=== PATIENT | female | born 1950 | race Caucasian/White ===

== ENCOUNTER 2018-08-09 09:54 | Outpatient (REF) | payer MEDICARE, BC, SELFPAY ==
[2018-08-10 11:39] LABS: Campylobacter PCR SEE COMMENTS; Salmonella PCR SEE COMMENTS; Shiga Toxin PCR SEE COMMENTS; Shigella/Enteroinvasive Ecoli SEE COMMENTS
== END 2018-08-09 10:14 ==
LOC: NCHCN 09:54
PROVIDERS: PCP Naturopath; Visit Provider Nurse Practitioner Family
DX: R10.84 Generalized abdominal pain (principal)
CPT/HCPCS: 87505

== ENCOUNTER 2018-08-28 08:56 | Outpatient (REF) | payer MEDICARE, BC, SELFPAY ==
[2018-08-30 14:42] LABS: Helicobacter pylori Ag, Feces Negative (NEGAT)
== END 2018-08-28 09:16 ==
LOC: NCHCN 08:56
PROVIDERS: PCP Naturopath; Visit Provider Nurse Practitioner Family
DX: R10.84 Generalized abdominal pain (principal)
CPT/HCPCS: 87338

== ENCOUNTER 2018-12-25 18:07 | Observation (INO) | payer MEDICARE, BC, SELFPAY ==
[2018-12-25] VITALS (23 sets, daily range): BP systolic 110–186; BP diastolic 71–84; PULSE 44–63; RESP 12–23; TEMP 36.3–37.1; O2SAT 94–100
--- NOTE | 2018-12-25 18:18 | DI.CT_ITS ---
SYMPTOM/DIAGNOSIS: DIFFICULTY SPEAKING, ? CVA NONCONTRAST HEAD CT: A noncontrast cranial CT was performed. The ventricular system is normal in appearance. There is no evidence of an intracranial mass lesion. There is no evidence of a subdural or epidural hematoma. No focal areas of decreased attenuation are seen. CONCLUSION: Normal noncontrast Cranial CT.
--- NOTE | 2018-12-25 18:31 | W.ED.GENAD ---
Discharge Plan Disposition Patient Disposition: [facility] INPATIENT Condition: Stable Discharge Details Chief Complaint: CVA/TIA Clinical Impression: TIA (transient ischemic attack), Hypertensive urgency Primary Care Provider: Michelle Lucio ED Provider: Mery Herrera Home Meds and New Rx's Prescriptions: No Action liothyronine [Cytomel] 25 MCG tablet 25 mcg PO DAILY RF: 0 levothyroxine 25 MCG tablet 25 mcg PO DAILY RF: 0 nitrofurantoin monohyd/m-cryst [Macrobid] 100 MG capsule 100 mg PO BID Qty: 14 RF: 0 ciprofloxacin HCl 500 MG tablet 500 mg PO BID Qty: 10 RF: 0 doxycycline hyclate [Doryx] 100 MG tablet,delayed release (DR/EC) 100 mg PO BID Qty: 10 RF: 0 Medical Decision Making 68-year-old female with history of TIA and hypothyroidism who presents with what appears to be having difficulty finding words and with her memory that started 30 minutes ago. Patient noted to have mild expressive aphasia on arrival. NIH 1. No focal deficits on exam. No signs of airway compromise. Blood pressure moderately hypertensive. 186/78. Heart rate 54, states this is her baseline. Afebrile. Patient sent directly to CT and CT head negative. Shortly after transport from CT, symptoms completely resolved. This therefore appears consistent with a TIA. She did complain of some blurry vision in her left eye which she states is chronic but slightly worse than usual. OD 20/50, OS 20/50, OU 20/50, and slightly more blurry on left. Labs and chest x-ray reviewed and unremarkable. She did admit to some alcohol use prior to arrival and alcohol 34. She did not appear intoxicated. Will admit for TIA for MRI and carotid ultrasound. We will continue to monitor blood pressure, although her elevated blood pressure may have contributed to her possible TIA. BP now 164/76. 1855 --discussed with hospitalist -accepts patient for admission. 325 mg aspirin ordered. 1909 --Case discussed with [facility] neurology who are paged shortly after patient's arrival and they were notified of patient's resolution of symptoms. Agree that this likely consistent with a TIA and agree with plan for admission for MRI and carotid ultrasound. Medical Records Medical records reviewed: Yes I reviewed the patient's medical records. Imaging Data Radiologic Study: Radiologist's impression: CT Head Without Contrast EXAM DATE/TIME: 12/25/2018 6:20 PM CLINICAL HISTORY: 68 years old, female; Signs and symptoms; Altered mental status/memory loss TECHNIQUE: Imaging protocol: Axial computed tomography images of the head without contrast. Coronal and sagittal reformatted images were created and reviewed. COMPARISON: No relevant prior studies available. FINDINGS: Brain: Normal. No hemorrhage. Unremarkable white matter. No mass effect. Ventricles: Normal. No ventriculomegaly. Bones/joints: Unremarkable. No acute fracture. Sinuses: Visualized sinuses are unremarkable. No fluid levels. Mastoid air cells: Visualized mastoid air cells are well aerated. No mastoid effusion. Soft tissues: Unremarkable. IMPRESSION: No acute intracranial abnormality. Radiologic Study #2: Radiologist's impression: XR Chest, 1 View EXAM DATE/TIME: 12/25/2018 6:47 PM CLINICAL HISTORY: 68 years old, female; Signs and symptoms; Patient HX: Stroke like symptoms, R/O widened mediastinum TECHNIQUE: Imaging protocol: XR of the chest, 1 view. COMPARISON: No relevant prior studies available. FINDINGS: Lungs: Unremarkable. No consolidation. Pleural space: Unremarkable. No pleural effusion. No pneumothorax. Heart/Mediastinum: Unremarkable. No cardiomegaly. Bones/joints: Unremarkable. IMPRESSION: No acute findings. Normal mediastinum. Lab Data Lab results reviewed: Yes I reviewed the patient's lab results. Laboratory Tests Range/Units 12/25/18 12/25/18 12/25/18 18:24 18:24 18:24 WBC (4.4-10.8) k/cumm 4.73 RBC (4.00-5.20) m/cumm 4.10 Hgb (12.0-15.5) g/dL 13.6 Hct (36.0-46.0) % 39.5 MCV (80-95) fL 96.3 H MCH (27.0-33.0) pg 33.2 H MCHC (32.0-36.0) g/dL 34.4 RDW (11.7-14.6) % 12.2 Plt Count (130-400) x1000/uL 161 MPV (8.0-11.0) fL 12.7 H Immature Gran % 0.0 Neutrophils % 48.0 Lymphocytes % 40.8 Monocytes % 8.7 Eosinophils % 2.1 Basophils % 0.4 Absolute Neutrophils (1.2-6.7) k/cumm 2.27 Absolute Lymphocytes (1.2-3.4) k/cumm 1.93 Absolute Monocytes (0.11-0.7) k/cumm 0.41 Absolute Eosinophils (0.0-0.7) k/cumm 0.10 Absolute Basophils (0.0-0.2) k/cumm 0.02 Sodium (136-145) mmol/L 137 Potassium (3.5-5.1) mmol/L 3.4 L Chloride (98-107) mmol/L 99 Carbon Dioxide (21.0-32.0) mmol/L 29.8 Anion Gap (3-11) mmol/L 8.2 BUN (7-18) mg/dL 14 Creatinine (0.55-1.02) mg/dL 0.68 Estimated GFR/1.73 m2 (mL/min/1.73m2) >= 60.00 Glucose (70-100) mg/dL 99 Calcium (8.5-10.1) mg/dL 9.6 Magnesium (1.8-2.4) mg/dL 2.3 Total Bilirubin (0.2-1.0) mg/dL 0.4 AST (15-37) U/L 26 ALT (12-78) U/L 31 Alkaline Phosphatase (46-116) U/L 100 Troponin I (0.00-0.06) ng/mL < 0.02 Total Protein (6.4-8.2) g/dL 7.7 Albumin (3.4-5.0) g/dL 4.2 Ethyl Alcohol (<3) mg/dL 34.3 ECG Data Attestation: I personally reviewed and interpreted this ECG (s) as follows: Interpretation: Rate of 48, sinus, no acute ST elevation or depression. QTc 389. QRS 86. HPI General Mode of arrival: ambulatory. Date/Time Provider Initiated Documentation: 12/25/18 18:18. Limitations to Documentation: no limitations. Information obtained by: patient. HPI Narrative: Patient is a 68-year-old female with a history of TIA and hypothyroidism who presents to the ED with complaint of difficulty finding words that started 30 minutes prior to arrival. Patient states she is building a new house and they were painting a house when she sat down and felt like she could not get out the right words. She states she felt like her memory was off and she could not express the words she wanted to say. She admits to a brief headache when the symptoms started but states this is now resolved. She denies any fever, chest pain, shortness of breath, dizziness, blurry vision, unilateral weakness or numbness. Related Data Home Medications Medication Instructions Recorded Confirmed levothyroxine 25 mcg PO DAILY 05/10/15 05/10/15 liothyronine [Cytomel] 25 mcg PO DAILY 05/10/15 05/10/15 nitrofurantoin monohyd/m-cryst 100 mg PO BID #14 cap 05/10/15 [Macrobid] ciprofloxacin HCl 500 mg PO BID #10 tab 03/02/17 doxycycline hyclate [Doryx] 100 mg PO BID #10 tabcr 03/02/17 Previous Rx's Medication Instructions Recorded nitrofurantoin monohyd/m-cryst 100 mg PO BID #14 cap 05/10/15 [Macrobid] ciprofloxacin HCl 500 mg PO BID #10 tab 03/02/17 doxycycline hyclate [Doryx] 100 mg PO BID #10 tabcr 03/02/17 Allergies Allergy/AdvReac Type Severity Reaction Status Date / Time Penicillins Allergy Intermediate Skin Rash Unverified 05/10/15 11:26 Sulfa (Sulfonamide Allergy Intermediate Skin Rash Unverified 05/10/15 11:26 Antibiotics) General Stated Complaint: CVA/TIA ANAHY: 2 Review of Systems Review of Systems All systems reviewed & are unremarkable except as noted in HPI and below Constitutional Reports as per HPI, Denies chills and Denies fever(s) Eyes Denies blurry vision ENT Denies dizziness, Denies sore throat and Denies throat swelling Cardiovascular Denies chest pain and Denies dyspnea Respiratory Denies cough and Denies dyspnea Gastrointestinal Denies abdominal pain, Denies diarrhea and Denies vomiting Genitourinary Denies hematuria and Denies dysuria Musculoskeletal Denies back pain and Denies numbness Integumentary/Breasts Denies lesions and Denies rash Neurologic Denies dizziness, Denies focal weakness and Denies numbness Allergic/Immunologic Denies throat swelling [facility] Medical History TIA (transient ischemic attack) (Acute) Hypothyroidism (Chronic) Surgical History No significant past surgical history (Acute) Social History Smoking/Tobacco Use Status: Former Tobacco Use Alcohol Intake: current Alcohol Intake frequency: holidays/special occasions only Drug use: Never Do you feel safe in your relationship?: Yes Exam Const General: cooperative, healthy appearing and no acute distress HENMT Head: normal to inspection Face and sinus: normal facial exam Eyes General: appearance normal, both eyes and all related structures Pupils: PERRL EOM: EOM intact bilaterally Neck Neck: normal visual inspection and No submandibular swelling Lymphatic: no lymphadenopathy noted Chest Chest: normal inspection of the chest and no tenderness Resp Effort & Inspection: normal respiratory effort and able to speak in complete sentences Auscultation: clear to auscultation bilaterally Cardio Rate: regular rate Rhythm: regular rhythm GI Inspection: normal to inspection Palpation: soft, not firm, not rigid and nontender Auscultation: normal bowel sounds Skin General skin exam: no rashes or lesions noted Neuro General: alert, awake, oriented x3, gait normal, moves all extremities, no meningeal signs and no focal motor deficits Cranial Nerves: CN's II-XI intact bilaterally and PERRL Cognition: normal cognition Speech: abnormal speech other (difficulty finding words c/w expressive aphasia) Motor: muscle tone normal throughout, strength 5/5 throughout and no pronator drift Sensory Exam: no sensory deficits noted Extrem General: normal to inspection, full ROM, normal capillary refill, no calf tenderness bilaterally and no edema Psych Appearance: grossly normal Mental Status: mental status grossly normal Speech and Movement: speech and movement normal Affect: normal affect Course Vital Signs Temperature 98.8 F 12/25/18 18:13 Pulse 54 L 12/25/18 18:13 Respiratory Rate 18 12/25/18 18:13 Blood Pressure 186/78 H 12/25/18 18:13 Pulse Oximetry 94 L 12/25/18 18:13 Temperature 98.8 F 12/25/18 18:13 Temperature Source Temporal Artery Scan 12/25/18 18:13 Pulse 54 L 12/25/18 18:13 Respiratory Rate 18 12/25/18 18:13 Blood Pressure 186/78 H 12/25/18 18:13 Pulse Oximetry 94 L 12/25/18 18:13 Oxygen Delivery Method Room Air 12/25/18 18:13 Oxygen Flow Rate 0 12/25/18 18:13
[2018-12-25 18:32] LABS: Absolute Basophil Count 0.02 k/cumm (0.0-0.2); Absolute Lymphocyte Count 1.93 k/cumm (1.2-3.4); Absolute Monocyte Count 0.41 k/cumm (0.11-0.7); Absolute Neutrophil Count 2.27 k/cumm (1.2-6.7); Basophils % 0.4; Eosinophils % 2.1; HCT 39.5 % (36.0-46.0); HGB 13.6 g/dL (12.0-15.5); Lymphocytes % 40.8; Mean Corp. HGB Concentration 34.4 g/dL (32.0-36.0); Mean Corpuscular Hemoglobin 33.2 pg (27.0-33.0); Mean Corpuscular Volume 96.3 fL (80-95); Mean Platelet Volume 12.7 fL (8.0-11.0); Monocytes % 8.7; Platelet Count 161 x1000/uL (130-400); RBC Distribution Width 12.2 % (11.7-14.6); White Blood Cell Count 4.73 k/cumm (4.4-10.8)
--- NOTE | 2018-12-25 18:42 | NUR.NOTE ---
Nursing Note: Pt walked into room 4 with steady gait. When asked what brings her here today she was unable to articulate the reason and her states that she is unable to finish her sentences. Hx of TIA without deficit. Moved her to rm 1. Attached exploration engineer, continuous pulse ox, and BP cuff q 30 min reads and got MD to bedside. Pt has symmetrical face not weakness just unable to find her words. IV started labs drawn and brought to CT via stretcher on monitor with a nurse. Pt tolerated CT well but refused chest xray until she talks to MD. Pt brought back to rm 1 MD informed. Pt is speaking in full sentences and seems to be doing better.
[2018-12-25 18:47] LABS: ETHANOL BLOOD 34.3 mg/dL (<3)
--- NOTE | 2018-12-25 18:47 | DI.VRAD_ITS ---
EXAM: CT Head Without Contrast EXAM DATE/TIME: 12/25/2018 6:20 PM CLINICAL HISTORY: 68 years old, female; Signs and symptoms; Altered mental status/memory loss TECHNIQUE: Imaging protocol: Axial computed tomography images of the head without contrast. Coronal and sagittal reformatted images were created and reviewed. COMPARISON: No relevant prior studies available. FINDINGS: Brain: Normal. No hemorrhage. Unremarkable white matter. No mass effect. Ventricles: Normal. No ventriculomegaly. Bones/joints: Unremarkable. No acute fracture. Sinuses: Visualized sinuses are unremarkable. No fluid levels. Mastoid air cells: Visualized mastoid air cells are well aerated. No mastoid effusion. Soft tissues: Unremarkable. IMPRESSION: No acute intracranial abnormality. Dictated and Authenticated by: Vanna Nicole MD. Ordering:JV Ordonez MD
[2018-12-25 18:55] LABS: ALT 31 U/L (12-78); AST 26 U/L (15-37); Albumin 4.2 g/dL (3.4-5.0); Alkaline Phosphatase 100 U/L (46-116); Anion Gap 8.2 mmol/L (3-11); BUN 14 mg/dL (7-18); Bilirubin, Total 0.4 mg/dL (0.2-1.0); CO2 29.8 mmol/L (21.0-32.0); CREATININE 0.68 mg/dL (0.55-1.02); Calcium 9.6 mg/dL (8.5-10.1); Chloride 99 mmol/L (98-107); Glucose 99 mg/dL (70-100); Magnesium 2.3 mg/dL (1.8-2.4); Potassium 3.4 mmol/L (3.5-5.1); Sodium 137 mmol/L (136-145); Total Protein 7.7 g/dL (6.4-8.2); Troponin I < 0.02 ng/mL (0.00-0.06)
--- NOTE | 2018-12-25 18:55 | DI.RAD_ITS ---
SYMPTOM/DIAGNOSIS: STROKE LIKE SYMPTOMS, ? WIDENED MEDIASTINUM PORTABLE AP CHEST: No priors. The heart is normal in size. The lungs are clear. The mediastinal structures and pleura appear intact. CONCLUSION: Normal chest.
[2018-12-25 19:06] LABS: PTT Activated 23.2 sec (21.0-31.4); Prothrombin Time 9.5 sec (9.3-11.0)
[2018-12-25] MEDS: Aspirin 325 MG TAB PO (19:13)
--- NOTE | 2018-12-25 19:20 | DI.VRAD_ITS ---
EXAM: XR Chest, 1 View EXAM DATE/TIME: 12/25/2018 6:47 PM CLINICAL HISTORY: 68 years old, female; Signs and symptoms; Patient HX: Stroke like symptoms, R/O widened mediastinum TECHNIQUE: Imaging protocol: XR of the chest, 1 view. COMPARISON: No relevant prior studies available. FINDINGS: Lungs: Unremarkable. No consolidation. Pleural space: Unremarkable. No pleural effusion. No pneumothorax. Heart/Mediastinum: Unremarkable. No cardiomegaly. Bones/joints: Unremarkable. IMPRESSION: No acute findings. Normal mediastinum. Dictated and Authenticated by: Vanna Nicole MD. Ordering:JV Ordonez MD
--- NOTE | 2018-12-25 19:43 | HPE_ITS ---
Date of service: 12/25/18 Time of Service: 19:35 History of Present Illness Chief Complaint: aphasia Narrative: 68 right handed female reports sudden onset of difficulty formulating words (knew what she wanted to say) along with vague sense of blurry vision and then left periorbital LAURA. CT head negative and language disturbance resolved here in ER, total duration some 30 minutes. LAURA persists to a degree, but better.Does report history of TIA, but apparently what she is referencing is some incidental finding on imaging study at [facility] [place] about a year ago. No prior similar symptoms. In ER has received dose of ASA; no AF on monitor. Review of Systems Review of Systems All systems reviewed & are unremarkable except as noted in HPI and below PFSH Medical History TIA (transient ischemic attack) (Acute) Hypothyroidism (Chronic) Surgical History No significant past surgical history (Acute) Social History Smoking/Tobacco Use Status: Former Tobacco Use Alcohol Intake: current Alcohol Intake frequency: holidays/special occasions only Drug use: Never Do you feel safe in your relationship?: Yes Meds Home Medications Medication Instructions Recorded Confirmed Type levothyroxine 25 mcg PO DAILY 05/10/15 05/10/15 History liothyronine [Cytomel] 25 mcg PO DAILY 05/10/15 05/10/15 History nitrofurantoin monohyd/m-cryst 100 mg PO BID #14 cap 05/10/15 Rx [Macrobid] ciprofloxacin HCl 500 mg PO BID #10 tab 03/02/17 Rx doxycycline hyclate [Doryx] 100 mg PO BID #10 tabcr 03/02/17 Rx Allergies Allergy/AdvReac Type Severity Reaction Status Date / Time Penicillins Allergy Intermediate Skin Rash Unverified 05/10/15 11:26 Sulfa (Sulfonamide Allergy Intermediate Skin Rash Unverified 05/10/15 11:26 Antibiotics) Exam Narrative Exam Narrative: 160/84, 50, 12, 37.1. HEENT atraumatic; neck supple, no bruits; lungs clear; heart marina/regular; abdomen soft, NT; extr: no edema; neuro o x3, languagee fluent, perrl, eomi, visual qureshi full, motor 5/5, toes downgoing Results Labs : 12/25/18 18:24 12/25/18 18:24 Laboratory Results - last 24 hr 12/25/18 12/25/18 12/25/18 18:24 18:24 18:24 WBC 4.73 RBC 4.10 Hgb 13.6 Hct 39.5 MCV 96.3 H MCH 33.2 H MCHC 34.4 RDW 12.2 Plt Count 161 MPV 12.7 H Immature Gran % 0.0 Neutrophils % 48.0 Lymphocytes % 40.8 Monocytes % 8.7 Eosinophils % 2.1 Basophils % 0.4 Absolute Neutrophils 2.27 Absolute Lymphocytes 1.93 Absolute Monocytes 0.41 Absolute Eosinophils 0.10 Absolute Basophils 0.02 PT INR APTT Sodium 137 Potassium 3.4 L Chloride 99 Carbon Dioxide 29.8 Anion Gap 8.2 BUN 14 Creatinine 0.68 Estimated GFR/1.73 m2 >= 60.00 Glucose 99 Calcium 9.6 Magnesium 2.3 Total Bilirubin 0.4 AST 26 ALT 31 Alkaline Phosphatase 100 Troponin I < 0.02 Total Protein 7.7 Albumin 4.2 Ethyl Alcohol 34.3 12/25/18 18:24 WBC RBC Hgb Hct MCV MCH MCHC RDW Plt Count MPV Immature Gran % Neutrophils % Lymphocytes % Monocytes % Eosinophils % Basophils % Absolute Neutrophils Absolute Lymphocytes Absolute Monocytes Absolute Eosinophils Absolute Basophils PT 9.5 INR 1.0 APTT 23.2 Sodium Potassium Chloride Carbon Dioxide Anion Gap BUN Creatinine Estimated GFR/1.73 m2 Glucose Calcium Magnesium Total Bilirubin AST ALT Alkaline Phosphatase Troponin I Total Protein Albumin Ethyl Alcohol Last Vital Signs Temp 37.1 C 12/25/18 18:13 Pulse 49 L 12/25/18 19:03 Resp 12 12/25/18 19:20 BP 164/76 H 12/25/18 19:03 Pulse Ox 100 12/25/18 19:20
[2018-12-26 04:05] VITALS: BP 117/69; PULSE 70; RESP 17; TEMP 37.2; O2SAT 96
[2018-12-26 07:12] VITALS: PULSE 58
[2018-12-26 07:15] VITALS: BP 110/67; PULSE 59; RESP 16; TEMP 36.7; O2SAT 98
[2018-12-26 07:16] LABS: TSH 0.41 uIU/mL (0.358-3.74)
--- NOTE | 2018-12-26 08:15 | DI.US_ITS ---
SYMPTOM/DIAGNOSIS: DIFFICULTY SPEAKING, ? CVA, TIA, APHASIA,FORMER SMOKER CAROTID ULTRASOUND: Routine examination was performed. There is minimal intimal thickening seen bilaterally in the mid internal carotid arteries and bulb. No hemodynamically significant velocity elevations are seen. The vertebral arteries are antegrade. IMPRESSION: No evidence of hemodynamically significant cervical carotid artery stenosis.
[2018-12-26 09:10] LABS: Anion Gap 6.1 mmol/L (3-11); BUN 11 mg/dL (7-18); CO2 31.9 mmol/L (21.0-32.0); CREATININE 0.78 mg/dL (0.55-1.02); Chloride 103 mmol/L (98-107); Glucose 120 mg/dL (70-100); Potassium 3.8 mmol/L (3.5-5.1); Sodium 141 mmol/L (136-145)
[2018-12-26 09:47] LABS: Calculated LDL 93; Cholesterol 199 mg/dL (50-200); HDL Cholesterol 77 mg/dL (40-60); Triglyceride 149 mg/dL (30-150)
--- NOTE | 2018-12-26 09:57 | PDOC.CMIN ---
- If Service Date Differs Date of service: 12/26/18 Time of Service: 09:57 Care Management Initial Assess REASON FOR HOSPITALIZATION:: TIA PAST MEDICAL HISTORY/PAST SURGICAL HISTORY:: Hypothyroidisim ADVANCE DIRECTIVES:: On file agent is Jhon Josejin CODE STATUS:: Full Code INSURANCE COVERAGE / FINANCIAL ISSUES:: BCBS, Medicare PRIMARY CARE PHYSICIAN:: Michelle Lucio POTENTIAL DISCHARGE NEEDS:: Follow up with primary care, and neurology PATIENT/FAMILY EDUCATION NEEDS:: Discharge education, limitations and follow up plan of care including ask me three and self management ANTICIPATED BARRIERS TO DISCHARGE:: None TRANSPORTATION:: Via private car with family at time of discharge. PLAN:: Perri will have a carotid ultra sound, telemetry and anticipate discharge home today if her symptoms have improved and she is medically ready. Anticiapte no additional services at time of discharge. Anticipate she will be discharged with cardiac event monitor for follow up as outpatient.
[2018-12-26] MEDS: Aspirin 325 MG TAB PO (10:44)
[2018-12-26] MEDS: Potassium Chloride 20 MEQ TABCR 40 MEQ PO (10:49)
--- NOTE | 2018-12-26 11:08 | W.PM.DS.N ---
Date of service: 12/26/18 Time of Service: 11:08 DS: Diagnosis Discharge Diagnosis (1) TIA (transient ischemic attack): Status: Acute Discharge Plan Disposition Patient Disposition: HOME Condition: Stable Discharge Details Reason For Visit: TIA Admit Date/Time: 12/25/18 19:48 Admit Provider: Huang Moreno Attending Provider: Huang Moreno Primary Care Provider: Michelle Lucio Hospital Course Hospital Course: Perri Moran is a very pleasant 68 year old female with a past medical history of hypothyroidism who is followed by Michelle Lucio, Naturopathic Doctor in [place], as well as Vilma Downs, JV. She presented to the ED on 12/25/18 with reports of word finding difficulty and blurry vision and was noted to have mild expressive aphasia and hypertension on arrival. She was referred for CT head which was negative. Her symptoms resolved after a total of 30 minutes. She was given aspirin 325mg in the ED and admitted to the med/surg floor for further observation and management. She was monitored on telemetry overnight and remained in sinus bradycardia. She had a carotid artery ultrasound which did not find evidence of hemodynamically significant cervical carotid artery stenosis. Her chest x-ray was normal. Her [facility] [place] were reviewed and of note, she had an MRI in July 2017 which showed small vessel disease. She also had an echocardiogram in October 2017 which was normal. An MRI was scheduled for the day of discharge, however, she preferred not to have the test while in the hospital. She decided to hold off on any further testing until she discussed it with her PCP, Michelle Lucio. Her lipids showed a total cholesterol of 199, triglycerides of 149, HDL 77, LDL 93. Consideration was made to start Statin therapy for secondary stroke prevention, however, the patient preferred to discuss any medication changes with her PCP prior to starting. She did agree to take a full strength aspirin daily and also agreed to a holter monitor at the time of discharge. Mrs. Moran did not have recurrence of symptoms while in the hospital. We discussed that given that her previous MRI brain showed small vessel disease, it was possible that her current symptoms could represent a TIA, which would place her at higher risk of having a CVA. She also admits that she has been under significant stress, this could also possibly represent a complex migraine. She was set up with a follow up appointment with Neurology. She will follow up with her PCP as scheduled. She will discuss having an MRI, repeat echocardiogram and starting a statin with her PCP. She is discharged home on daily Aspirin and with a holter monitor in place. Home Meds and New Rx's Prescriptions: New aspirin 325 mg Tablet 325 mg PO DAILY Qty: 30 RF: 0 Continued liothyronine [Cytomel] 25 MCG tablet 25 mcg PO DAILY RF: 0 levothyroxine 25 MCG tablet 75 mcg PO DAILY RF: 0 Discharge Instructions Additional Instructions: Discuss having a repeat MRI with your PCP. Continue taking Aspirin daily. Consider taking a Statin for stroke prevention. Discuss follow up with neurology with your PCP (an appointment has been made). Take care! Stand Alone Forms: Nursing Discharge Form Referrals: Michelle Lucio [Primary Care Provider] - 01/01/19 4:00 pm Sadaf Gates MD [ [facility] STAFF PHYSICIAN] - 02/11/19 8:45 am Activity:: Activity as Tolerated Equipment/Supplies:: No Equipment Needed Diet:: Heart healthy diet. Discharge Orders Discharge Orders: Discharge Order (Routine); Ordered 12/26/18 Ordered By: Jacqui Brown Discharge Data Discharge Date/Time-TO BE ENTERED AT DEPARTURE: 12/26/18 12:31 Exam Narrative Exam Narrative: General: alert and oriented, pleasant and cooperative, answers questions appropriately, no word finding difficulty. Speech is clear and articulate. HEENT: normocephalic, atraumatic, pupils symmetrical and round, EOMI, mucous membranes moist. Neck: supple, no JVD. Respiratory: respirations even and unlabored, lung sounds clear bilaterally. Cardiovascular: heart sounds regular, bradycardic in the 50s. No murmur. GI: abdomen soft, nontender, normoactive bowel sounds. Extremities: no clubbing, cyanosis or edema. DS: Data Vitals/I&O Vitals and I&O: Vital Signs Temperature 36.7 C 12/26/18 07:15 Temperature Source Tympanic 12/26/18 07:15 Pulse 59 L 12/26/18 07:15 Pulse Rhythm Regular 12/26/18 09:15 Pulse 46 L 12/25/18 19:50 Respiratory Rate 16 12/26/18 07:15 Respiratory Effort 12/26/18 09:15 Respiratory Depth Normal 12/26/18 09:15 Respiratory Pattern Normal 12/26/18 09:15 Blood Pressure 110/67 12/26/18 07:15 Blood Pressure Mean 80 12/25/18 19:32 Pulse Oximetry 98 12/26/18 07:15 Oxygen Delivery Method Room Air 12/26/18 07:15 Oxygen Flow Rate 0 12/26/18 07:15 Pain Level 0 12/26/18 04:05 Intake & Output 12/25/18 12/25/18 12/26/18 11:59 23:59 11:59 Intake Total 1000 / 1000 660 / 660 Output Total 1400 / 1400 1150 / 1150 Balance -400 / -400 -490 / -490 Weight 70.8 kg Intake: Oral 1000 / 1000 660 / 660 Output: Urine 1400 / 1400 1150 / 1150 Other: Urine Color Yellow Pale Yellow Urine Appearance Clear Clear Urine Odor Normal None Voiding Methods Toilet Toilet Completed studies during hospitalization [Text1]: 12/25/[address]: A noncontrast cranial CT was performed. The ventricular system is normal in appearance. There is no evidence of an intracranial mass lesion. There is no evidence of a subdural or epidural hematoma. No focal areas of decreased attenuation are seen. CONCLUSION: Normal noncontrast Cranial CT. PORTABLE AP CHEST: No priors. The heart is normal in size. The lungs are clear. The mediastinal structures and pleura appear intact. CONCLUSION: Normal chest. 12/26/18: CAROTID ULTRASOUND: Routine examination was performed. There is minimal intimal thickening seen bilaterally in the mid internal carotid arteries and bulb. No hemodynamically significant velocity elevations are seen. The vertebral arteries are antegrade. IMPRESSION: No evidence of hemodynamically significant cervical carotid artery stenosis. Labs on day of discharge: Labs from last 24 hours 12/26/18 12/25/18 12/25/18 08:38 18:24 18:24 WBC RBC Hgb Hct MCV MCH MCHC RDW Plt Count MPV Immature Gran % Neutrophils % Lymphocytes % Monocytes % Eosinophils % Basophils % Absolute Neutrophils Absolute Lymphocytes Absolute Monocytes Absolute Eosinophils Absolute Basophils PT 9.5 INR 1.0 APTT 23.2 Sodium 141 Potassium 3.8 Chloride 103 Carbon Dioxide 31.9 Anion Gap 6.1 BUN 11 Creatinine 0.78 Estimated GFR/1.73 m2 >= 60.00 Glucose 120 H Calcium 9.0 Magnesium Total Bilirubin AST ALT Alkaline Phosphatase Troponin I Total Protein Albumin Triglycerides 149 Total Cholesterol 199 LDL Cholesterol, Calc 93 HDL Cholesterol 77 H TSH Ethyl Alcohol 34.3 12/25/18 12/25/18 18:24 18:24 WBC 4.73 RBC 4.10 Hgb 13.6 Hct 39.5 MCV 96.3 H MCH 33.2 H MCHC 34.4 RDW 12.2 Plt Count 161 MPV 12.7 H Immature Gran % 0.0 Neutrophils % 48.0 Lymphocytes % 40.8 Monocytes % 8.7 Eosinophils % 2.1 Basophils % 0.4 Absolute Neutrophils 2.27 Absolute Lymphocytes 1.93 Absolute Monocytes 0.41 Absolute Eosinophils 0.10 Absolute Basophils 0.02 PT INR APTT Sodium 137 Potassium 3.4 L Chloride 99 Carbon Dioxide 29.8 Anion Gap 8.2 BUN 14 Creatinine 0.68 Estimated GFR/1.73 m2 >= 60.00 Glucose 99 Calcium 9.6 Magnesium 2.3 Total Bilirubin 0.4 AST 26 ALT 31 Alkaline Phosphatase 100 Troponin I < 0.02 Total Protein 7.7 Albumin 4.2 Triglycerides Total Cholesterol LDL Cholesterol, Calc HDL Cholesterol TSH 0.41 Ethyl Alcohol PFSH Medical History TIA (transient ischemic attack) (Acute) Hypothyroidism (Chronic) Surgical History No significant past surgical history (Acute) Social History Smoking/Tobacco Use Status: Former Tobacco Use Alcohol Intake: current Alcohol Intake frequency: holidays/special occasions only Drug use: Never Do you feel safe in your relationship?: Yes
== END 2018-12-26 12:31 | disposition home or self-care (01) ==
LOC: ER 20:06 → MS 20:16
PROVIDERS: Nurse Practitioner; Admitting Provider General Practice; Emergency Provider Physician Assistant; PCP Naturopath; Visit Provider Internal Medicine
DX: G45.9 Transient cerebral ischemic attack, unspecified (principal); G43.809 Other migraine, not intractable, without status migrainosus; F80.1 Expressive language disorder; H53.8 Other visual disturbances; R00.1 Bradycardia, unspecified; E03.9 Hypothyroidism, unspecified; R03.0 Elevated blood-pressure reading, without diagnosis of hypertension; Z73.3 Stress, not elsewhere classified
CPT/HCPCS: 36415; 80048; 80053; 80061; 83721; 93005; 99222; 99239; 99285; 70450; 71045; 80320; 83735; 84443; 84484; 85025; 85610; 85730; 93010; 93225; 93880; 99217; 99219; G0378

== ENCOUNTER 2018-12-29 12:26 | Outpatient (CLI) | payer MEDICARE, BC, SELFPAY ==
--- NOTE | 2018-12-31 11:53 | HOLTER_ITS ---
CARDIAC HOLTER MONITOR DATE OF DICTATION December 31, 2018 48-Hour Study INTERPRETATION Baseline rhythm sinus. Rare single PAC. No SVT or atrial fibrillation. Rare single PVC. No VT. Nocturnal heart rates as low as 35-40 beats per minute, sinus bradycardia. SYMPTOMS No symptoms. Average heart rate 52 beats per minute. Quintin Dee M.D. T - 12/31/18
== END 2018-12-29 12:46 ==
PROVIDERS: PCP Naturopath; Visit Provider General Practice
DX: R00.1 Bradycardia, unspecified (principal)
CPT/HCPCS: 93226

== ENCOUNTER 2018-12-31 09:48 | Outpatient (CLI) | payer MEDICARE, BC, SELFPAY | END 2018-12-31 10:08 | PROVIDERS: PCP Naturopath; Referring Provider Nurse Practitioner; Visit Provider Internal Medicine Interventional Cardiology | DX: R00.1 Bradycardia, unspecified (principal) | CPT/HCPCS: 93227 ==

== ENCOUNTER 2019-02-28 11:56 | Emergency (ER) | payer MEDICARE, BC, SELFPAY ==
[2019-02-28 12:04] VITALS: BP 150/60; PULSE 44; RESP 15; TEMP 36.3; O2SAT 100
--- NOTE | 2019-02-28 12:37 | W.ED.GENAD ---
Discharge Plan Disposition Patient Disposition: HOME Condition: Stable Discharge Details Chief Complaint: Laceration Clinical Impression: Forehead laceration, Contusion of right knee Primary Care Provider: Michelle Lucio ED Provider: Quintin Triana Home Meds and New Rx's Prescriptions: No Action liothyronine [Cytomel] 25 MCG tablet 25 mcg PO DAILY RF: 0 levothyroxine 25 MCG tablet 75 mcg PO DAILY RF: 0 aspirin 325 mg Tablet 325 mg PO DAILY Qty: 30 RF: 0 Discharge Instructions Instructions: Contusion in Adults (ED), Facial Laceration (ED) Medical Decision Making 68 yo female comes in with wound to the right forehead. She was in a new house yesterday wearing a long dress and it got caught on a box causing her to fall. Did not have loc and has no severe headaches or vomit. HAs a small very superficial 1cm laceration to the right forehead. Given length of time since injury and superficial do not feel sutures indicated. Given a day since the fall and no headaches, ams or neuro symptoms do not feel imaging indicated and has no neck pain. Also has some anterior right knee pain has full rom and bearing weight without limp. I offered an xray but she declined of the knee which I feel is reasonable. Will have nursing place steri strips and return precautions given Differential Diagnosis laceration, abrasion, contusion HPI General Mode of arrival: ambulatory. Date/Time Provider Initiated Documentation: 02/28/19 12:22. Limitations to Documentation: no limitations. Information obtained by: patient. History of Present Illness 68 year old F presents to the emergency department with the chief complaint of head laceration, described as mild, Quality is described as aching, No relieving factors improve symptom(s), No exacerbating factors reported . Related Data Home Medications Medication Instructions Recorded Confirmed levothyroxine 75 mcg PO DAILY 05/10/15 02/28/19 liothyronine [Cytomel] 25 mcg PO DAILY 05/10/15 02/28/19 aspirin 325 mg PO DAILY #30 tab 12/26/18 02/28/19 Previous Rx's Medication Instructions Recorded aspirin 325 mg PO DAILY #30 tab 12/26/18 Allergies Allergy/AdvReac Type Severity Reaction Status Date / Time Penicillins Allergy Intermediate Skin Rash Unverified 02/28/19 12:07 Sulfa (Sulfonamide Allergy Intermediate Skin Rash Unverified 02/28/19 12:07 Antibiotics) General Stated Complaint: Laceration ANAHY: 3 Review of Systems Review of Systems All systems reviewed & are unremarkable except as noted in HPI and below Constitutional Denies chills, Denies fever(s) and Denies weakness ENT Denies change in voice Cardiovascular Denies chest pain and Denies dyspnea Respiratory Denies cough and Denies dyspnea Gastrointestinal Denies abdominal pain, Denies nausea and Denies vomiting Musculoskeletal Denies joint swelling Neurologic Denies weakness [facility] Social History Smoking/Tobacco Use Status: Former Tobacco Use Alcohol Intake: current Alcohol Intake frequency: holidays/special occasions only Drug use: Never Do you feel safe at home: Yes Do you feel safe in your relationship?: Yes Exam Const General: no acute distress Orientation: alert HENMT Head: no palpable skull fracture Ears: external ears normal General nose exam: external nose normal Mouth: moist mucous membranes Eyes General: appearance normal, both eyes and all related structures Neck Neck: normal visual inspection Resp Effort & Inspection: normal respiratory effort and able to speak in complete sentences Cardio Rate: regular rate Skin General skin exam: no rashes or lesions noted Neuro General: alert and oriented x3 Extrem General: normal to inspection Psych Mental Status: mental status grossly normal Course Vital Signs Temperature 36.3 C L 02/28/19 12:04 Pulse 44 L 02/28/19 12:04 Respiratory Rate 15 02/28/19 12:04 Blood Pressure 150/60 H 02/28/19 12:04 Pulse Oximetry 100 02/28/19 12:04 Temperature 36.3 C L 02/28/19 12:04 Temperature Source Temporal Artery Scan 02/28/19 12:04 Pulse 44 L 02/28/19 12:04 Respiratory Rate 15 02/28/19 12:04 Respiratory Effort Non-Labored 02/28/19 12:08 Blood Pressure 150/60 H 02/28/19 12:04 Blood Pressure Position Sitting 02/28/19 12:04 Pulse Oximetry 100 02/28/19 12:04 Pain Level 2 02/28/19 12:04
== END 2019-02-28 12:45 | disposition home or self-care (01) ==
LOC: ER 13:17
PROVIDERS: Emergency Provider Emergency Medicine; PCP Naturopath
DX: S01.81XA Laceration without foreign body of other part of head, initial encounter (principal); S80.01XA Contusion of right knee, initial encounter; W01.198A Fall on same level from slipping, tripping and stumbling with subsequent striking against other object, initial encounter
CPT/HCPCS: 99282

== ENCOUNTER 2019-09-10 10:14 | Outpatient (CLI) | payer MEDICARE, BC, SELFPAY ==
[2019-09-10 13:01] LABS: ALT 24 U/L (14-59); AST 20 U/L (15-37); Albumin 3.8 g/dL (3.4-5.0); Alkaline Phosphatase 87 U/L (46-116); Bilirubin, Total 0.7 mg/dL (0.2-1.0); Calculated LDL 99 mg/dL (<100); Cholesterol 195 mg/dL (<200); HDL Cholesterol 82 mg/dL (40-60); TSH 0.06 uIU/mL (0.36-3.74); Total Protein 6.6 g/dL (6.4-8.2); Triglyceride 74 mg/dL (<150); Vitamin B12 830 pg/mL (193-986)
[2019-09-10 13:31] LABS: Bilirubin, Direct 0.12 mg/dL (0.00-0.20); FREE T4 1.08 ng/dL (0.76-1.46)
[2019-09-10 17:35] LABS: T3, Total 122 ng/dL (97-169)
== END 2019-09-10 10:34 ==
PROVIDERS: PCP Naturopath; Visit Provider Naturopath
DX: E78.5 Hyperlipidemia, unspecified (principal); R25.2 Cramp and spasm; R51 Headache; R94.6 Abnormal results of thyroid function studies
CPT/HCPCS: 36415; 80061; 80076; 82607; 83735; 84439; 84443; 84480

== ENCOUNTER 2020-03-31 21:58 | Outpatient (REF) | payer MEDICARE, BC, SELFPAY ==
[2020-03-31 19:49] LABS: ALT 28 U/L (14-59); AST 20 U/L (15-37); Albumin 3.8 g/dL (3.4-5.0); Alkaline Phosphatase 96 U/L (46-116); Anion Gap 2.8 mmol/L (3-11); BUN 15 mg/dL (7-18); Bilirubin, Total 0.6 mg/dL (0.2-1.0); CO2 32.2 mmol/L (21.0-32.0); CREATININE 0.67 mg/dL (0.55-1.02); Calcium 8.7 mg/dL (8.5-10.1); Calculated LDL 102 mg/dL (<100); Chloride 105 mmol/L (98-107); Cholesterol 198 mg/dL (<200); Glucose 67 mg/dL (74-106); HDL Cholesterol 80 mg/dL (40-60); Potassium 4.1 mmol/L (3.5-5.1); Sodium 140 mmol/L (136-145); TSH 0.26 uIU/mL (0.36-3.74); Total Protein 6.3 g/dL (6.4-8.2); Triglyceride 84 mg/dL (<150)
[2020-03-31 20:35] LABS: Uric Acid 4.3 mg/dL (2.6-6.0)
[2020-04-01 17:35] LABS: T3,Free 3.6 pg/mL (2.8-5.3)
== END 2020-03-31 22:18 ==
LOC: NCHCN 21:58
PROVIDERS: PCP Naturopath; Visit Provider Nurse Practitioner Family
DX: E03.9 Hypothyroidism, unspecified (principal); M85.88 Other specified disorders of bone density and structure, other site
CPT/HCPCS: 80053; 80061; 82306; 84439; 84443; 84481; 84550

== ENCOUNTER 2020-07-03 03:29 | Outpatient (CLI) | payer MEDICARE, BC, SELFPAY ==
[2020-07-03 12:56] LABS: ALT 21 U/L (14-59); AST 21 U/L (15-37); Albumin 3.8 g/dL (3.4-5.0); Alkaline Phosphatase 80 U/L (46-116); Anion Gap 4.8 mmol/L (3-11); BUN 13 mg/dL (7-18); Bilirubin, Total 0.7 mg/dL (0.2-1.0); CO2 31.2 mmol/L (21.0-32.0); CREATININE 0.77 mg/dL (0.55-1.02); Calcium 8.8 mg/dL (8.5-10.1); Calculated LDL 90 mg/dL (<100); Chloride 105 mmol/L (98-107); Cholesterol 192 mg/dL (<200); Glucose 83 mg/dL (74-106); HDL Cholesterol 91 mg/dL (40-60); Potassium 3.8 mmol/L (3.5-5.1); Sodium 141 mmol/L (136-145); TSH 0.64 uIU/mL (0.36-3.74); Total Protein 6.4 g/dL (6.4-8.2); Triglyceride 58 mg/dL (<150)
[2020-07-03 13:15] LABS: FREE T4 1.05 ng/dL (0.76-1.46); Uric Acid 4.6 mg/dL (2.6-6.0)
[2020-07-03 18:23] LABS: T3,Free 3.9 pg/mL (2.8-5.3)
[2020-07-03 18:37] LABS: T3, Total 135 ng/dL (97-169)
[2020-07-06 05:52] LABS: Vitamin D 25 Total 61.3 ng/ml (30-100)
== END 2020-07-03 03:49 ==
PROVIDERS: PCP Naturopath; Visit Provider Naturopath
DX: E78.5 Hyperlipidemia, unspecified (principal); E03.9 Hypothyroidism, unspecified; E55.9 Vitamin D deficiency, unspecified; M79.674 Pain in right toe(s); M79.675 Pain in left toe(s)
CPT/HCPCS: 36415; 80053; 80061; 82306; 84439; 84443; 84480; 84481; 84550

== ENCOUNTER 2020-09-29 02:45 | Outpatient (CLI) | payer MEDICARE, BC, SELFPAY ==
[2020-09-29 22:34] LABS: Kit/Specimen SENT
== END 2020-09-29 02:46 | disposition home or self-care (01) ==
LOC: LBO 02:45
PROVIDERS: PCP Naturopath; Visit Provider Naturopath
DX: R53.83 Other fatigue (principal); B60.09 Other babesiosis; A69.20 Lyme disease, unspecified
CPT/HCPCS: 36415

== ENCOUNTER 2020-10-07 02:44 | Outpatient (CLI) | payer MEDICARE, BC, SELFPAY ==
--- NOTE | 2020-10-07 | DI.US_ITS ---
EXAM: US ABDOMEN CLINICAL HISTORY: EPIGASTRIC ABD PAIN,R10.9,LOW ABD PAIN,INCOMPLETE BOWEL ELIMINATION TECHNIQUE: Ultrasound of complete upper abdomen performed using standard protocol. COMPARISON: No exams were available for comparison FINDINGS: There is no ascites evident. LIVER: There are no ominous focal hepatic lesions identified on these images. GALLBLADDER/BILIARY: There are no gallstones. No gallbladder wall edema nor pericholecystic fluid. The common hepatic duct isnot dilated, measuring 5mm at the level of jossie hepatis. PANCREAS: There is no evidence of pancreatic mass nor dilatation of the pancreatic duct. SPLEEN: The spleen is not enlarged and there are no intrasplenic lesions evident. KIDNEYS:Kidneys exhibit normal size with no evidence of solid mass, calculus, nor hydronephrosis. No cortical cysts evident. ABDOMINAL AORTA: There is no evidence of abdominal aortic aneurysm. IVC: Normal diameter where visualized. IMPRESSION: 1. No evidence of cholelithiasis nor dilatation of the biliary tree. 2. No other significant ultrasound findings in the upper abdomen. 3. There is no ascites. DATA REPOSITORY:
== END 2020-10-07 03:04 ==
PROVIDERS: PCP Naturopath; Visit Provider Naturopath
DX: R10.31 Right lower quadrant pain (principal); R10.13 Epigastric pain
CPT/HCPCS: 76700

== ENCOUNTER 2020-10-29 02:29 | Outpatient (CLI) | payer MEDICARE, BC, SELFPAY ==
--- NOTE | 2020-10-29 | DI.DEXA_ITS ---
EXAM: XR DEXA BONE DENSITY W/WO ASIF CLINICAL HISTORY: SCREENING FOR OSTEOPOROSIS IN POSTMENOPAUSAL WOMAN,Z78.0 TECHNIQUE: Routine DEXA evaluation of the lumbar spine, hip, or forearm. COMPARISON: Prior 2013 DEXA scan FINDINGS: Performed on a [employer] unit. Lateral image: No compression fracture evident. Lumbar Spine total T-score: -2.6 . Prior 2013 reading was -2.0 Hip total T-score:-1.4. Prior 2013 reading was -0.9 Independent reading today at the level of the femoral neck yields a T-score of -2.[address] this patient due to the osteoporosis category. Forearm total T-score: -1.3 IMPRESSION: Bone mineral density measures in the osteoporosis range. Fracture risk is high. Sign rib Note: Any spine fracture indicates 5x risk for subsequent spine fracture and 2x risk for subsequent h ip fracture. World Health Organization criteria for BMD interpretation classify patients: Normal...... T- Score at or above -1.0 Osteopenic... T- Score between -1.0 and -2.5 Osteoporosis... T-Score at or below -2.5
== END 2020-10-29 02:49 ==
PROVIDERS: PCP Naturopath; Visit Provider Nurse Practitioner Family
DX: M81.0 Age-related osteoporosis without current pathological fracture (principal); Z78.0 Asymptomatic menopausal state
CPT/HCPCS: 77080

== ENCOUNTER 2021-01-13 01:56 | Outpatient (CLI) | payer MEDICARE, BC, SELFPAY ==
--- NOTE | 2021-01-13 | DI.US_ITS ---
Exam(s) US PELVIS TRANSVAGINAL EXAM: US PELVIS TRANSVAGINAL CLINICAL HISTORY: RLQ PAIN R10.31 LOOK FOR UTERINE FIBROID TECHNIQUE: Ultrasound of the pelvis was performed both transabdominal and transvaginal. COMPARISON: US US ABDOMEN from 10/07/2020 FINDINGS: UTERUS: Measures 5 cm length x 2.2 cm AP x 4 cm wide. There are no uterine fibroids. Endometrial thickness measures 0.7 mm. There is no fluid in the endometrial canal. CERVIX: There are no obvious nabothian cysts. Ovaries were not visualized CUL-DE-SAC: No free fluid evident. IMPRESSION: 1. Normal appearing uterus and age-appropriate endometrium. 2. Ovaries not visualized in this 70-year-old patient 3. No abnormal adnexal masses nor free fluid evident. DATA REPOSITORY:
== END 2021-01-13 02:16 ==
PROVIDERS: PCP Naturopath; Visit Provider Naturopath
DX: R10.31 Right lower quadrant pain (principal)
CPT/HCPCS: 76830; 76856

== ENCOUNTER 2021-03-26 10:32 | Outpatient (REF) | payer MEDICARE, BC, SELFPAY ==
[2021-03-26 15:27] LABS: FREE T4 0.98 ng/dL (0.76-1.46)
[2021-03-26 21:59] LABS: T3,Free 3.3 pg/mL (2.8-5.3)
== END 2021-03-26 10:33 | disposition home or self-care (01) ==
LOC: NCHCN 10:32
PROVIDERS: PCP Naturopath; Visit Provider Nurse Practitioner Family
DX: E03.9 Hypothyroidism, unspecified (principal)
CPT/HCPCS: 84439; 84443; 84481

== ENCOUNTER 2021-12-24 01:34 | Outpatient (CLI) | payer MEDICARE, BC, SELFPAY ==
[2021-12-24 09:55] LABS: Abs Immature Grans 0.01 10^3/uL (0.0-0.06); Absolute Basophil Count 0.03 10^3/uL (0.0-0.2); Absolute Eosinophil Count 0.06 10^3/uL (0.0-0.7); Absolute Lymphocyte Count 1.13 10^3/uL (1.2-3.4); Absolute Monocyte Count 0.33 10^3/uL (0.1-0.8); Absolute Neutrophil Count 3.07 10^3/uL (1.2-6.7); Basophils % 0.6; Eosinophils % 1.3; HCT 36.5 % (36.0-46.0); HGB 12.6 g/dL (11.2-15.7); Immature Grans % 0.2; Lymphocytes % 24.4; MCH 33.2 pg (27.0-33.0); MCHC 34.5 % (32.0-36.0); MCV 96 fL (80-95); MPV 12.1 fL (8.0-11.0); Monocytes % 7.1; Neutrophils % 66.4; Platelet Count 171 10^3/uL (130-400); RDW 11.6 % (11.7-14.6); RDW-SD 40.8 fL; WBC 4.63 10^3/uL (4.4-10.8)
[2021-12-24 10:18] LABS: ALT 50 U/L (14-59); AST 14 U/L (15-37); Albumin 3.6 g/dL (3.4-5.0); Alkaline Phosphatase 81 U/L (46-116); Anion Gap 7.1 mmol/L (3-11); BUN 13 mg/dL (7-18); Bilirubin, Total 0.4 mg/dL (0.2-1.0); CO2 29.9 mmol/L (21.0-32.0); CREATININE 0.7 mg/dL (0.55-1.02); Calcium 8.7 mg/dL (8.5-10.1); Calculated LDL 100 mg/dL (<100); Chloride 104 mmol/L (98-107); Cholesterol 182 mg/dL (<200); FREE T4 1.12 ng/dL (0.76-1.46); Glucose 103 mg/dL (74-106); HDL Cholesterol 70 mg/dL (40-60); Potassium 3.8 mmol/L (3.5-5.1); Sodium 141 mmol/L (136-145); TSH 0.19 uIU/mL (0.36-3.74); Total Protein 6.6 g/dL (6.4-8.2); Triglyceride 62 mg/dL (<150)
[2021-12-24 16:46] LABS: Hemoglobin A1C 5.6 % (<5.7)
[2021-12-24 17:46] LABS: T3,Free 3.8 pg/mL (2.8-5.3)
[2021-12-30 15:35] LABS: Creatinine, U 12 mg/dL; NTX 36 nmol/L; NTX-Telopedptide, U 34 nmol/mmol
== END 2021-12-24 01:35 | disposition home or self-care (01) ==
LOC: LBO 01:35
PROVIDERS: PCP Naturopath; Visit Provider Naturopath
DX: E03.9 Hypothyroidism, unspecified (principal); M81.0 Age-related osteoporosis without current pathological fracture; H05.229 Edema of unspecified orbit; E55.9 Vitamin D deficiency, unspecified; E78.5 Hyperlipidemia, unspecified
CPT/HCPCS: 36415; 80053; 80061; 82306; 82523; 83036; 83088; 84439; 84443; 84481; 85025

== ENCOUNTER → 2022-05-04 13:02 | Outpatient (CLI) | payer MEDICARE, BC, SELFPAY ==
--- NOTE | 2022-05-04 14:26 | DI.RAD_ITS ---
Exam(s) XR SHOULDER RT COMPLETE 2+V EXAM: XR SHOULDER RT COMPLETE 2+V CLINICAL HISTORY: PAIN RT SHOULDER M25.511. TECHNIQUE: 2D digital imaging was performed. COMPARISON: No exams were available for comparison FINDINGS: Five views: No evidence of fracture or dislocation nor diminution of the subacromial space. No soft tissue calci fications evident. There is calcific ridge on the undersurface the acromion noted. AC joint is not distracted. No evid ence of os acromiale. IMPRESSION: As above. DATA REPOSITORY: RADIATION DOSE DELIVERED:
== END ==
PROVIDERS: PCP Naturopath; Visit Provider Naturopath
DX: M25.511 Pain in right shoulder (principal)
CPT/HCPCS: 73030

== ENCOUNTER → 2022-05-31 13:53 | Outpatient (BNVA) | payer MEDICARE, BC, SELFPAY | PROVIDERS: PCP Nurse Practitioner Family; Referring Provider Naturopath; Visit Provider Student in an Organized Health Care Education/Training Program | DX: M75.101 Unspecified rotator cuff tear or rupture of right shoulder, not specified as traumatic (principal) | CPT/HCPCS: 99203 ==

== ENCOUNTER → 2022-06-22 02:58 | Outpatient (CLI) | payer MEDICARE, BC, SELFPAY ==
--- NOTE | 2022-06-22 07:00 | DI.MRI_ITS ---
Exam(s) MR UPPER JOINT RT WO CLINICAL HISTORY: RC weakness,rt rotator cuff tear,m75.101. TECHNIQUE: Multiplanar multisequence MRI was performed. COMPARISON: None FINDINGS: MR examination of the shoulder was performed according to the usual protocol. There is a moderate effusion of the glenohumeral joint. There is moderate fluid in the subacromial s ubdeltoid bursa. Bones and labrum: No bony signal abnormality seen. Hypertrophic changes noted at a C joint and to a lesser degree at glenohumeral joint. The glenoid labrum appears effaced, possible labral tearing pos terior to anterior in superior labrum period. Rotator cuff: Supraspinatus, subscapularis, infraspinatus, and teres minor muscles and tendons all s how abnormal signal distally consistent with tendinosis. No definite subscapularis or infraspinatus tendon tear. There is apparent superior surface and intra tendinous minor tearing of supraspinatus. No full-thickness tear or retracted tear seen.. Rotator interval structures are unremarkable with no evidence of a tear. Biceps tendon and anchor: Biceps anchor shows mildly abnormal signal as does the proximal biceps tend on with no evidence of a tear. Biceps tendon is normally positioned in the bicipital groove. IMPRESSION: Rotator cuff tendinosis with minor superior surface and intra tendinous tearing of supraspinatus. Possible SLAP tear . DATA REPOSITORY:
== END ==
PROVIDERS: PCP Nurse Practitioner Family; Visit Provider Student in an Organized Health Care Education/Training Program
DX: M75.101 Unspecified rotator cuff tear or rupture of right shoulder, not specified as traumatic (principal); M25.511 Pain in right shoulder; M75.81 Other shoulder lesions, right shoulder
CPT/HCPCS: 73221

== ENCOUNTER → 2022-06-28 10:38 | Outpatient (BNVA) | payer MEDICARE, BC, SELFPAY | PROVIDERS: PCP Nurse Practitioner Family; Referring Provider Nurse Practitioner Family; Visit Provider Student in an Organized Health Care Education/Training Program | DX: M75.101 Unspecified rotator cuff tear or rupture of right shoulder, not specified as traumatic (principal); M75.21 Bicipital tendinitis, right shoulder | CPT/HCPCS: 99213 ==

== ENCOUNTER → 2022-08-30 09:53 | Outpatient (BNVA) | payer MEDICARE, BC, SELFPAY | PROVIDERS: PCP Nurse Practitioner Family; Referring Provider Nurse Practitioner Family; Visit Provider Student in an Organized Health Care Education/Training Program | DX: M75.21 Bicipital tendinitis, right shoulder (principal); M75.101 Unspecified rotator cuff tear or rupture of right shoulder, not specified as traumatic | CPT/HCPCS: 99213 ==

== ENCOUNTER 2022-11-25 00:06 | Outpatient (CLI) | payer MEDICARE, BC, SELFPAY ==
--- NOTE | 2022-11-25 13:14 | DI.DEXA_ITS ---
Exam(s) XR DEXA BONE DENSITY W/WO ASIF EXAM: XR DEXA BONE DENSITY W/WO ASIF CLINICAL HISTORY: OSTEOPOROSIS M81.0 SCREENING TECHNIQUE: [employer] C densitometer analysis of left hip, lumbar spine and left forearm. Lat eral survey image of the thoracic and lumbar spine. COMPARISON: DX DEXA BONE DENSITY WITH ASIF from 05/28/2013 CR XR DEXA BONE DENSITY W/WO ASIF from 10/29/2020 FINDINGS: Lateral view of the thoracic and lumbar spine shows no evidence of compression fractures. Bone mineral density measurements of the lumbar spine correspond to a total T-score of -2.4, in the o steopenic range. This is not significantly changed from 2020 but represents a 5.4 percent decrease c ompared with 2012. Bone mineral density measurements of the left hip correspond to a total T-score of -1.5. The femora l neck T-score is -2.3, in the osteopenic range. This is not significantly changed from 2020 but re presents a 9.1 percent decrease from 2012.. The left forearm bone mineral density measurements correspond to a T-score of the distal 3rd of -1.6, in the osteopenic range. 3.8 Percent decrease from 2020. 8.4 percent decrease compared to 2012. . IMPRESSION: Osteopenia of the lumbar spine, hip and forearm.
== END 2022-11-25 00:26 ==
LOC: DI 00:06
PROVIDERS: PCP Nurse Practitioner Family; Visit Provider Nurse Practitioner Family
DX: M85.09 Fibrous dysplasia (monostotic), multiple sites (principal)
CPT/HCPCS: 77080

== ENCOUNTER 2022-12-06 15:47 | Outpatient (REF) | payer MEDICARE, BC, SELFPAY ==
[2022-12-06 15:33] LABS: Abs Immature Grans 0.01 10^3/uL (0.0-0.06); Absolute Basophil Count 0.05 10^3/uL (0.0-0.2); Absolute Lymphocyte Count 1.38 10^3/uL (1.2-3.4); Absolute Monocyte Count 0.35 10^3/uL (0.1-0.8); Absolute Neutrophil Count 2.34 10^3/uL (1.2-6.7); Basophils % 1.2; Eosinophils % 2.4; HCT 37.9 % (36.0-46.0); HGB 13.1 g/dL (11.2-15.7); Immature Grans % 0.2; Lymphocytes % 32.6; MCH 33.4 pg (27.0-33.0); MCHC 34.6 % (32.0-36.0); MCV 97 fL (80-95); MPV 12.3 fL (8.0-11.0); Monocytes % 8.3; Neutrophils % 55.3; Platelet Count 151 10^3/uL (130-400); RBC 3.92 10^6/uL (3.93-5.22); RDW 12.3 % (11.7-14.6); RDW-SD 43.9 fL; WBC 4.23 10^3/uL (4.4-10.8)
[2022-12-06 16:01] LABS: TSH 0.28 uIU/mL (0.36-3.74)
[2022-12-07 19:16] LABS: Rheumatoid Factor 14.5 IU/mL (<12.0)
[2022-12-08 15:29] LABS: ANA Interpretation Positive (Negative); ANA Titer Pattern 1:160 Homogeneous
== END 2022-12-06 15:48 | disposition home or self-care (01) ==
LOC: NCHCN 15:47
PROVIDERS: PCP Nurse Practitioner Family; Visit Provider Nurse Practitioner Family
DX: M25.50 Pain in unspecified joint (principal); Z82.61 Family history of arthritis; E03.9 Hypothyroidism, unspecified
CPT/HCPCS: 84443; 85025; 86038; 86431

== ENCOUNTER 2023-01-05 02:24 | Outpatient (CLI) | payer MEDICARE, BC, SELFPAY ==
[2023-01-05 10:14] LABS: Abs Immature Grans 0.01 10^3/uL (0.0-0.06); Absolute Basophil Count 0.04 10^3/uL (0.0-0.2); Absolute Eosinophil Count 0.08 10^3/uL (0.0-0.7); Absolute Lymphocyte Count 1.27 10^3/uL (1.2-3.4); Absolute Monocyte Count 0.32 10^3/uL (0.1-0.8); Absolute Neutrophil Count 2.44 10^3/uL (1.2-6.7); Eosinophils % 1.9; HCT 37.9 % (36.0-46.0); Immature Grans % 0.2; Lymphocytes % 30.5; MCH 33.6 pg (27.0-33.0); MCHC 34.3 % (32.0-36.0); MCV 98 fL (80-95); MPV 12.8 fL (8.0-11.0); Monocytes % 7.7; Neutrophils % 58.7; Platelet Count 155 10^3/uL (130-400); RBC 3.87 10^6/uL (3.93-5.22); RDW 12.7 % (11.7-14.6); RDW-SD 45.3 fL; WBC 4.16 10^3/uL (4.4-10.8)
[2023-01-05 11:20] LABS: Vitamin D 25 Total 63.3 ng/mL (30-100)
[2023-01-05 11:26] LABS: Folate > 20.0 ng/mL (8.6-20.0); Vitamin B12 > 2000 pg/mL (193-986)
[2023-01-10 17:06] LABS: Histamine Plasma 0.62 ng/mL (0-1.0)
== END 2023-01-05 02:25 | disposition home or self-care (01) ==
PROVIDERS: PCP Nurse Practitioner Family; Visit Provider Naturopath
DX: E55.9 Vitamin D deficiency, unspecified (principal); L28.2 Other prurigo; E53.8 Deficiency of other specified B group vitamins; E67.3 Hypervitaminosis D
CPT/HCPCS: 36415; 82306; 82607; 82746; 83088; 85025

== ENCOUNTER 2023-02-10 18:45 | Outpatient (REF) | payer MEDICARE, BC, SELFPAY ==
[2023-02-10 19:39] LABS: ALT 19 U/L (14-59); AST 25 U/L (15-37); Albumin 3.7 g/dL (3.4-5.0); Alkaline Phosphatase 67 U/L (46-116); Anion Gap 7.6 mmol/L (3-11); BUN 12 mg/dL (7-18); Bilirubin, Total 0.7 mg/dL (0.2-1.0); CO2 29.4 mmol/L (21.0-32.0); CREATININE 0.7 mg/dL (0.55-1.02); Calcium 8.6 mg/dL (8.5-10.1); Chloride 104 mmol/L (98-107); Estimated GFR 91.26 (mL/min/1.73m2); Folate 18.9 ng/mL (8.6-20.0); Glucose 77 mg/dL (74-106); Potassium 3.8 mmol/L (3.5-5.1); Sodium 141 mmol/L (136-145); TSH 0.11 uIU/mL (0.36-3.74); Total Protein 6.4 g/dL (6.4-8.2); Vitamin B12 1033 pg/mL (193-986)
[2023-02-10 19:51] LABS: Vitamin D 25 Total 53.7 ng/mL (30-100)
== END 2023-02-10 18:46 | disposition home or self-care (01) ==
LOC: NCHCN 18:45
PROVIDERS: PCP Nurse Practitioner Family; Visit Provider Nurse Practitioner Family
DX: E53.9 Vitamin B deficiency, unspecified (principal); R25.2 Cramp and spasm; E03.9 Hypothyroidism, unspecified; E55.9 Vitamin D deficiency, unspecified
CPT/HCPCS: 80053; 82306; 82607; 82746; 83735; 84443

== ENCOUNTER 2023-03-29 20:01 | Outpatient (REF) | payer MEDICARE, BC, SELFPAY ==
[2023-03-29 15:59] LABS: Hemoglobin A1C 5.4 % (<5.7)
[2023-03-29 16:08] LABS: FREE T4 0.92 ng/dL (0.76-1.46); TSH 0.72 uIU/mL (0.36-3.74)
== END 2023-03-29 20:02 | disposition home or self-care (01) ==
LOC: NCHCN 20:01
PROVIDERS: PCP Nurse Practitioner Family; Visit Provider Nurse Practitioner Family
DX: E03.9 Hypothyroidism, unspecified (principal); R53.83 Other fatigue; Z86.39 Personal history of other endocrine, nutritional and metabolic disease
CPT/HCPCS: 83036; 84439; 84443

== ENCOUNTER 2023-04-24 15:08 | Outpatient (REF) | payer MEDICARE, BC, SELFPAY ==
[2023-04-24 16:37] LABS: C-Reactive Protein 0.09 mg/dL (0.0-0.3)
[2023-04-24 22:07] LABS: Rheumatoid Factor 17.8 IU/mL (<12.0)
[2023-04-26 13:39] LABS: ANA Interpretation Positive (Negative); ANA Titer Pattern 1:320 Homogeneous
[2023-04-27 12:04] LABS: ESR (LRH) 11 mm/hr
== END 2023-04-24 15:09 | disposition home or self-care (01) ==
LOC: NCHCN 15:08
PROVIDERS: PCP Nurse Practitioner Family; Visit Provider Nurse Practitioner Family
DX: R53.83 Other fatigue (principal); R79.89 Other specified abnormal findings of blood chemistry; R78.89 Finding of other specified substances, not normally found in blood; R52 Pain, unspecified
CPT/HCPCS: 85652; 86038; 86140; 86431

== ENCOUNTER 2023-07-06 16:16 | Outpatient (REF) | payer MEDICARE, BC, SELFPAY ==
[2023-07-06 19:10] LABS: FREE T4 1.06 ng/dL (0.76-1.46); TSH 0.48 uIU/mL (0.36-3.74)
== END 2023-07-06 16:17 | disposition home or self-care (01) ==
LOC: NCHCN 16:16
PROVIDERS: PCP Nurse Practitioner Family; Visit Provider Nurse Practitioner Family
DX: E03.9 Hypothyroidism, unspecified (principal)
CPT/HCPCS: 84439; 84443

== ENCOUNTER 2023-08-29 15:28 | Outpatient (REF) | payer MEDICARE, BC, SELFPAY | END 2023-08-29 15:29 | disposition home or self-care (01) | LOC: NCHCN 15:28 | PROVIDERS: PCP Nurse Practitioner Family; Visit Provider Nurse Practitioner Family | DX: N39.0 Urinary tract infection, site not specified (principal) | CPT/HCPCS: 87086 ==

== ENCOUNTER 2023-11-30 14:27 | Outpatient (REF) | payer MEDICARE, BC, SELFPAY ==
[2023-11-30 20:57] LABS: Hemoglobin A1C 5.6 % (<5.7)
[2023-11-30 21:04] LABS: Vitamin D 25 Total 49.4 ng/mL (30-100)
== END 2023-11-30 14:28 | disposition home or self-care (01) ==
LOC: NCHCN 14:27
PROVIDERS: PCP Nurse Practitioner Family; Visit Provider Nurse Practitioner Family
DX: E55.9 Vitamin D deficiency, unspecified; Z77.011 Contact with and (suspected) exposure to lead; R63.5 Abnormal weight gain
CPT/HCPCS: 82306; 83825; 83036; 83655

== ENCOUNTER 2024-01-08 11:12 | Outpatient (CLI) | payer MEDICARE, BC, SELFPAY ==
--- NOTE | 2024-01-08 11:15 | RT.EKG_ITS ---
APPROVED REPORT Exam: Resting ECG Reason for Exam: bradycardia Patient Location: O HR:43 bpm ECG Measurements Heart Rate 43 AXIS SD 170 P 70 QRSd 98 QRS 35 QT 485 T 53 QTc 411 Conclusion Sinus bradycardia...rate< 50 Baseline wander in lead(s) V5 Otherwise normal ECG
== END 2024-01-08 11:13 | disposition home or self-care (01) ==
LOC: DI.CARD 11:24
PROVIDERS: Visit Provider Internal Medicine Cardiovascular Disease
DX: R00.1 Bradycardia, unspecified (principal)
CPT/HCPCS: 93010

== ENCOUNTER → 2024-01-08 11:12 | Outpatient (BNVA) | payer MEDICARE, BC, SELFPAY | PROVIDERS: Visit Provider Internal Medicine Cardiovascular Disease | DX: R00.1 Bradycardia, unspecified (principal) | CPT/HCPCS: 93005; 99214 ==

== ENCOUNTER 2024-03-20 01:02 | Outpatient (CLI) | payer MEDICARE, BC, SELFPAY ==
--- NOTE | 2024-03-20 07:30 | DI.MAMMO_ITS ---
Exam(s) MAMMO SCREENING EXAM: MAMMO SCREENING CLINICAL HISTORY: screening,Z12.31 TECHNIQUE: Mammograms were interpreted according to the usual protocol including computer analysis w [employer] CAD system, tomosynthesis and C-view imaging. COMPARISON: 2006 through 2021 FINDINGS: The breasts are composed of mainly fatty density , Breast Density category A. No suspicious masses or suspicious microcalcifications are seen. No skin thickening or abnormal axillary lymph nodes are seen. There has been no significant change from prior exams. IMPRESSION: BI-RADS Category 1, Negative mammogram Yearly screening mammography is recommended. Breast Density - Category A, fatty density. A negative radiographic report should not delay biopsy if a dominant or clinically suspicious mass is present. Up to ten percent of cancers are not identified on mammography. A negative report may reinforce clinical impression. Adenosis and dense breasts may obscure an underlying neoplasm. False positive reports average 6 to 10%. Patient will receive a letter notifying them of these results.
== END 2024-03-20 01:22 ==
LOC: DI 01:02
PROVIDERS: Visit Provider Obstetrics & Gynecology
DX: Z12.31 Encounter for screening mammogram for malignant neoplasm of breast (principal)
CPT/HCPCS: 77063; 77067

== ENCOUNTER 2024-06-21 13:14 | Outpatient (REF) | payer MEDICARE, SELFPAY | END 2024-06-21 13:15 | disposition home or self-care (01) | LOC: NCHCN 13:14 | PROVIDERS: Visit Provider Nurse Practitioner Family | DX: R35.0 Frequency of micturition (principal) | CPT/HCPCS: 87086 ==

== ENCOUNTER 2024-06-25 15:23 | Outpatient (REF) | payer MEDICARE, SELFPAY | END 2024-06-25 15:24 | disposition home or self-care (01) | LOC: NCHCN 15:23 | PROVIDERS: PCP Nurse Practitioner Family; Visit Provider Nurse Practitioner Family | DX: L29.3 Anogenital pruritus, unspecified (principal) | CPT/HCPCS: 87480; 87510; 87660 ==

== ENCOUNTER 2024-07-12 01:56 | Outpatient (CLI) | payer MEDICARE, BC, SELFPAY ==
[2024-07-12 13:05] LABS: Abs Immature Grans 0.02 10^3/uL (0.0-0.06); Absolute Basophil Count 0.04 10^3/uL (0.0-0.2); Absolute Eosinophil Count 0.11 10^3/uL (0.0-0.7); Absolute Lymphocyte Count 1.51 10^3/uL (1.2-3.4); Absolute Monocyte Count 0.41 10^3/uL (0.1-0.8); Basophils % 0.7 %; Eosinophils % 1.8 %; HCT 35.6 % (36.0-46.0); HGB 12.1 g/dL (11.2-15.7); Immature Grans % 0.3 %; Lymphocytes % 24.8 %; MCH 33.5 pg (27.0-33.0); MCV 99 fL (80-95); MPV 12.3 fL (8.0-11.0); Monocytes % 6.7 %; Neutrophils % 65.7 %; Platelet Count 149 10^3/uL (130-400); RBC 3.61 10^6/uL (3.93-5.22); RDW 12.7 % (11.7-14.6); WBC 6.09 10^3/uL (4.4-10.8)
[2024-07-12 13:28] LABS: ALT 17 U/L (14-59); AST 21 U/L (15-37); Albumin 3.3 g/dL (3.4-5.0); Alkaline Phosphatase 91 U/L (46-116); Anion Gap 6.1 mmol/L (3-11); BUN 16 mg/dL (7-18); Bilirubin, Total 0.45 mg/dL (0.2-1.0); CO2 29.9 mmol/L (21.0-32.0); CREATININE 0.8 mg/dL (0.55-1.02); Calcium 8.6 mg/dL (8.5-10.1); Chloride 107 mmol/L (98-107); Estimated GFR 77.27 (mL/min/1.73m2); FREE T4 1.03 ng/dL (0.76-1.46); Glucose 84 mg/dL (74-106); Potassium 3.9 mmol/L (3.5-5.1); Sodium 143 mmol/L (136-145); TSH 0.28 uIU/mL (0.36-3.74); Total Protein 6.3 g/dL (6.4-8.2)
[2024-07-12 13:45] LABS: Calculated LDL 91 mg/dL (<100); Cholesterol 204 mg/dL (<200); Folate 8.8 ng/mL (8.6-20.0); HDL Cholesterol 93 mg/dL (40-60); Triglyceride 103 mg/dL (<150); Vitamin B12 431 pg/mL (193-986)
== END 2024-07-12 01:57 | disposition home or self-care (01) ==
PROVIDERS: Naturopath; PCP Nurse Practitioner Family; Visit Provider Nurse Practitioner Family
DX: E03.9 Hypothyroidism, unspecified (principal); E55.9 Vitamin D deficiency, unspecified
CPT/HCPCS: 36415; 80053; 80061; 82306; 87040; 82607; 82746; 83036; 84439; 84443; 85025

== ENCOUNTER 2024-10-11 12:02 | Outpatient (CLI) | payer MEDICARE, BC, SELFPAY ==
[2024-10-11 12:03] LABS: Abs Immature Grans 0.03 10^3/uL (0.0-0.06); Absolute Basophil Count 0.03 10^3/uL (0.0-0.2); Absolute Lymphocyte Count 1.47 10^3/uL (1.2-3.4); Absolute Monocyte Count 0.39 10^3/uL (0.1-0.8); Absolute Neutrophil Count 3.55 10^3/uL (1.2-6.7); Basophils % 0.5 %; Eosinophils % 1.8 %; HCT 36.8 % (36.0-46.0); HGB 12.5 g/dL (11.2-15.7); Immature Grans % 0.5 %; Lymphocytes % 26.4 %; MCH 33.5 pg (27.0-33.0); MCV 99 fL (80-95); MPV 12.6 fL (8.0-11.0); Neutrophils % 63.8 %; Platelet Count 150 10^3/uL (130-400); RBC 3.73 10^6/uL (3.93-5.22); RDW 12.5 % (11.7-14.6); RDW-SD 44.9 fL; WBC 5.57 10^3/uL (4.4-10.8)
[2024-10-11 12:20] LABS: ALT 19 U/L (14-59); AST 21 U/L (15-37); Albumin 3.5 g/dL (3.4-5.0); Alkaline Phosphatase 93 U/L (46-116); Anion Gap 5.3 mmol/L (3-11); BUN 11 mg/dL (7-18); Bilirubin, Total 0.6 mg/dL (0.2-1.0); CO2 31.7 mmol/L (21.0-32.0); CREATININE 0.8 mg/dL (0.55-1.02); Calcium 9.2 mg/dL (8.5-10.1); Chloride 106 mmol/L (98-107); Estimated GFR 77.27 (mL/min/1.73m2); FREE T4 1.15 ng/dL (0.76-1.46); Glucose 85 mg/dL (74-106); Sodium 143 mmol/L (136-145); TSH 0.39 uIU/mL (0.36-3.74); Total Protein 6.7 g/dL (6.4-8.2)
[2024-10-11 12:58] LABS: Folate 18.8 ng/mL (8.6-20.0); Vitamin B12 599 pg/mL (193-986)
[2024-10-14 08:55] LABS: DHEA Sulfate 115 ug/dL (See Note)
[2024-10-14 12:43] LABS: Homocysteine 13.2 umol/L (5.0-13.9)
[2024-10-15 12:02] LABS: Apolipoprotein A1, S 188 mg/dL (>=140); Apolipoprotein B, S 75 mg/dL (See Comment); Apolipoprotein B/A 1 ratio 0.4 (See Comment)
== END 2024-10-11 12:03 | disposition home or self-care (01) ==
LOC: LBO 12:02
PROVIDERS: PCP Nurse Practitioner Family; Visit Provider Naturopath
DX: R53.83 Other fatigue (principal); E78.5 Hyperlipidemia, unspecified
CPT/HCPCS: 36415; 80053; 82172; 82627; 83090; 82607; 82728; 82746; 83036; 83540; 83550; 84439; 84443; 85025

== ENCOUNTER 2024-10-31 11:42 | Outpatient (CLI) | payer MEDICARE, BC, SELFPAY ==
[2024-10-31 13:03] LABS: Hemoglobin A1C 5.5 % (<5.7)
[2024-10-31 13:28] LABS: Iron 70 ug/dL (50-170); Total Iron Binding Capacity 308 ug/dL (250-450); Transferrin Sat 23 % (15-50)
[2024-10-31 13:34] LABS: Ferritin 105 ng/mL (8-252); Vitamin D 25 Total 45 ng/mL (30-100)
[2024-11-02 13:21] LABS: Copper, Serum 106 mcg/dL (77-206)
== END 2024-10-31 11:43 | disposition home or self-care (01) ==
LOC: LBO 11:43
PROVIDERS: PCP Nurse Practitioner Family; Visit Provider Naturopath
DX: D53.9 Nutritional anemia, unspecified (principal); R73.03 Prediabetes; E55.9 Vitamin D deficiency, unspecified
CPT/HCPCS: 36415; 82306; 82525; 82728; 83036; 83540; 83550

== ENCOUNTER 2025-02-03 00:39 | Outpatient (CLI) | payer MEDICARE, BC, SELFPAY ==
--- NOTE | 2025-02-03 09:30 | DI.US_ITS ---
APPROVED REPORT EXAM: Comprehensive 2D, Doppler, and color-flow Echocardiogram Patient Location: Out-Patient Indications: Heart murmur Other Information Study Quality: Good Conclusion Normal left ventricular wall thickness and chamber size. Ejection fraction is 60%. Wall motion is normal Normal right ventricular size and function Both atria are normal size There are no structural valvular abnormalities Mild mitral and tricuspid regurgitation Estimated right ventricular systolic pressure is 26 mmHg Wall motion Left Ventricle The left ventricle is normal size. The left ventricular systolic function is normal. The left ventricular ejection fraction is within the normal range. There is normal left ventricular wall thickness. There is normal LV segmental wall motion. There is no ventricular septal defect visualized. LVEF is 60%. Right Ventricle The right ventricle is normal size. The right ventricular systolic function is normal. Atria The left atrium size is normal. The right atrium size is normal. The interatrial septum is intact with no evidence for an atrial septal defect. Aortic Valve The aortic valve is normal in structure. Aortic valve is trileaflet. There is no aortic valvular stenosis. No aortic regurgitation is present. Mitral Valve The mitral valve is normal in structure. No evidence of mitral valve stenosis. Mild mitral regurgitation. Tricuspid Valve The tricuspid valve is normal in structure. There is no tricuspid valve stenosis. Mild tricuspid regurgitation. The RVSP is 26.3 mmHg. Pulmonic Valve The pulmonary valve is normal in structure. There is no pulmonic valvular stenosis. There is no pulmonic valvular regurgitation. Great Vessels The aortic root is normal in size. The ascending aorta is normal in size. Aortic arch is normal in caliber. IVC is normal in size and collapses >50% with inspiration. Pericardium There is no pericardial effusion. 2D Dimensions IVSD d PLAX 0.80 cm F: 0.6-1.0 Ao Root d 3.09 cm F: 2.7 - 3.3 LVPW d PLAX 0.81 cm F: 0.6 - 1.0 Ao Asc Diam d 3.31 cm F: 2.3 - 3.1 LVID d PLAX 4.31 cm F: 3.8 - 5.2 LVDs 2.86 cm F: 2.2 - 3.5 LV EF Teichholz 62.8 % FS 33.72 % LV EDV (Teich) 83.7 mL LV ESV (Teich) 31.1 mL M-Mode TAPSE 2.71 cm (M/F) >1.7 Auto EF LV EDV A4C 102.5 mL LV EDV A2C 92.9 mL LV EDV BP 98.6 mL LV ESV A4C 41.8 mL LV ESV A2C 36.3 mL LV ESV BP 38.7 mL LVEF(%) A4C 59.3 % LVEF(%) A2C 60.9 % LVEF(%) BP 60.8 % LV SV A4C 60.8 ml LV SV A2C 56.6 ml LV SV BP 59.9 ml LV CO A4C 2.7 L/min LV CO A2C 2.2 L/min LV CO BP 2.4 L/min HR A4C 44.56 BPM HR A2C 38.46 BPM LV EDV Index (BP) LA Volume LA Length A4C 4.3 cm LA Length A2C 4.8 cm LA Area A4C s 12.99 cm2 LA Area A2C s 17.32 cm2 LA Vol A4C A-L 33.23 mL LA Vol A2C A-L 53.56 mL LA Vol Biplane A-L 44.3 mL LA Vol/BSA A4C A-L LA Vol/BSA A2C A-L LA Vol/BSA BP A-L 25.0 mL/m2 LA Vol A4C MOD 30.7 mL LA Vol A2C MOD 49.4 mL LA Vol BP MOD 40.9 mL RA Volume RA Area A4C 11.3 cm2 RA ESV A4C (A-L) 26.4mL RA Vol/BSA A4C A-L RA Length A4C 4.1 cm RA ESV A4C (MOD) 25.6mL LV Diastology MV E' medial 0.087 (>0.07 m/s) MV E Vmax 0.84 (0.4-1.3 m/s) MV E/E' MED 9.65 (<14) MV A Vmax 0.80 (0.4-1.3 m/s) MV E' lateral 0.108 (>0.1 m/s) E/A Ratio 1.0 MV E/E' LAT 7.81 (<14) MV E' Average 0.098 m/s MV E/E'(average) 8.63 Aortic Valve AoV Vmax 1.67 m/s LVOT Vmax 1.26 m/s AoV Peak Grad 11.1 mmHg LVOT Peak Grad 6.3 mmHg AoV Area (Vmax) 2.10 cm2 LVOT VTI 0.333 m AoV VTI 0.456 m LVOT Mean Grad 3.2 mmHg AoV Mean Pedrito. 1.10 m/s LVOT SV 92.88 mL AoV Mean Grad 5.6 mmHg LVOT Diam s 1.85 cm AoV Area (VTI) 2.04 cm2 AV Regurg Peak Gr. 11.09 mmHg Velocity Ratio 0.75 Mitral Valve MV DT 263 (160-240 msec) MV Vmax TIPS 0.83 m/s MV Mean Grad 0.9 (<2mmHg) MV VTI 0.402 m Pulmonary Valve PV Vmax 0.91 (0.5-1.5 m/s) RVOT Vmax 0.75 m/s PV Peak Grad 3.3 mmHg RVOT Peak Gr. 2.3 mmHg PV Mean Pedrito 0.65 m/s RVOT VTI 0.199 m PV Mean Grad 1.9 mmHg RVOT Mean Gr. 1.2 mmHg Tricuspid Valve RA Pressure 3.00 mmHg TR Vmax 2.41 m/s TV S' 0.15 m/s TR Peak Grad 23.2 mmHg RVSP (TR) 26.3 mmHg
== END 2025-02-03 00:59 ==
LOC: DI 00:39
PROVIDERS: PCP Nurse Practitioner Family; Visit Provider Naturopath
DX: R01.1 Cardiac murmur, unspecified (principal); I34.0 Nonrheumatic mitral (valve) insufficiency
CPT/HCPCS: 93306